=== PATIENT | female | born 1960 | race Two or more races ===

== ENCOUNTER 2018-02-03 14:00 | Outpatient (CLI) | payer OTHER | END 2018-02-03 14:14 | disposition home or self-care (01) | LOC: MAMO-SONO 14:00 | DX: Z12.31 Encounter for screening mammogram for malignant neoplasm of breast (principal) ==

== ENCOUNTER 2019-11-16 13:06 | Outpatient (CLI) | payer OTHER | END 2019-11-16 13:24 | disposition home or self-care (01) | LOC: MAMO-SONO 13:06 | PROVIDERS: ATTEND Obstetrics & Gynecology | DX: Z12.31 Encounter for screening mammogram for malignant neoplasm of breast (principal); N60.11 Diffuse cystic mastopathy of right breast ==

== ENCOUNTER 2021-11-15 08:42 | Outpatient (CLI) | payer OTHER | END 2021-11-15 09:19 | disposition home or self-care (01) | LOC: MAMO-SONO 08:42 | PROVIDERS: ATTEND Obstetrics & Gynecology | DX: Z12.31 Encounter for screening mammogram for malignant neoplasm of breast (principal); N60.11 Diffuse cystic mastopathy of right breast ==

== ENCOUNTER 2024-09-23 11:27 | Outpatient (CLI) | payer OTHER | END 2024-09-23 11:32 | disposition home or self-care (01) | LOC: MAMO-SONO 11:27 | PROVIDERS: ATTEND Obstetrics & Gynecology | DX: N60.11 Diffuse cystic mastopathy of right breast (principal); Z12.31 Encounter for screening mammogram for malignant neoplasm of breast ==